=== PATIENT | female | born 1960 | race Hispanic/Latino ===

== ENCOUNTER 2022-04-25 18:12 | Emergency (ER) | payer OTHER ==
[~2022-04-25] VITALS: Ht 152.4 cm; Wt 73.5 kg
[2022-04-25] MEDS ORDERED: IBUPROFEN 600 MG TAB PO STA (18:41)
[2022-04-25] MEDS ORDERED: CYCLOBENZAPRINE HCL 10 MG TAB PO ONE (18:45)
[2022-04-25] MEDS ORDERED: METHOCARBAMOL750 MG PO (19:50)
[2022-04-25] MEDS ORDERED: MOTRIN800 MG PO (19:50)
== END 2022-04-25 19:58 | disposition home or self-care (01) ==
LOC: ER 18:17
DX: M25.561 Pain in right knee (principal); M25.512 Pain in left shoulder; M25.552 Pain in left hip; V43.52XA Car driver injured in collision with other type car in traffic accident, initial encounter; Y92.488 Other paved roadways as the place of occurrence of the external cause; I10 Essential (primary) hypertension
CPT/HCPCS: 99283